=== PATIENT | male | born 1935 | race Caucasian/White ===

== ENCOUNTER 2023-11-29 17:27 | Inpatient (IN) | payer MEDICARE, BC, SELFPAY ==
[2023-11-28 22:50] VITALS: BP 98/62
[2023-11-28 22:52] VITALS: BP 98/62
[2023-11-28 23:00] VITALS: BP 100/53
[2023-11-28 23:20] LABS: % Basophils 0.3 % (0-2); % Immature Granulocytes 1.1 % (0-0.5); % Lymphocytes 1.5 % (20.5-51.1); % Monocytes 8.2 % (1.7-9.3); % Neutrophils 88.9 % (42.2-75.2); Absolute Basophils 0.1 10^3/uL (0-0.2); Absolute Immature Granulocytes 0.2 10^3/uL (0-0.05); Absolute Lymphocytes 0.3 10^3/uL (1.2-3.4); Absolute Monocytes 1.8 10^3/uL (0.1-0.6); Hemoglobin 13.3 g/dL (13.0-18.0); Mean Corpuscular Hgb 32.8 pg (27.0-31.0); Mean Corpuscular Volume 93.8 fL (80.0-94.0); Mean Platelet Volume 10.5 fL (7.4-10.4); Nucleated Red Blood Cells % 0 % (-); Platelet Count 127 10^3/uL (130-400); Red Blood Cell Count 4.05 10^6/uL (4.70-6.10); Red Cell Dist. Width 14.1 % (11.5-14.5); White Blood Cell Count 21.3 10^3/uL (4.8-10.8)
[2023-11-28 23:35] LABS: COVID-19 Antigen Negative (Negative)
[2023-11-28 23:36] LABS: ALT (SGPT) 20 U/L (0-50); AST (SGOT) 25 U/L (17-59); Albumin 3.2 g/dl (3.5-5.0); Alkaline Phosphatase 62 U/L (38-126); Blood Urea Nitrogen 23 mg/dl (9-20); Calcium 8.3 mg/dl (8.4-10.2); Carbon Dioxide 23 mmol/L (22-30); Chloride 102 mmol/L (98-107); Estimated Creatinine Clearance 47 ml/min; Glucose 138 mg/dl (70-99); Potassium 3.9 mmol/L (3.5-5.1); Sodium 136 mmol/L (135-145); Total Bilirubin 1.5 mg/dl (0.2-1.3); eGFR 52.84
--- NOTE | 2023-11-28 23:59 | ED.GENMED ---
History of Present Illness
General
Chief Complaint: Fall
Source: patient and family
Exam Limitations: none
Time Seen by Provider: 11/28/23 23:17
History of Present Illness
History of Present Illness:
88-year-old male apparently passed out at some point in the bathroom. He does not recall the event. Appears somewhat off mentally per the daughter. Patient denies other specific complaints. No head trauma no neck pain. Appears mildly short of
breath but this apparently is chronic.
Past History
Past History
ED Past Surgical History: Cholecystectomy, Orthopedic and Other (Cataract)
Phy Exam
Physical Exam
Physical Exam:
TRAUMA EXAM:
VITAL SIGNS: Vital signs reviewed, cooperative
DISTRESS: No active disease
EYES: Pupils reactive, no orbital trauma
NOSE: No deformity or epistaxis
FACE AND SCALP: No scalp or facial trauma, external canals no blood
NECK: Supple nontender
BACK: Back nontender, pelvis stable to compression
RESPIRATORY: Mild tachypnea. However no respiratory distress. Mild rhonchi right base.
CARDIAC: Regular rate and rhythm with occasional irregular beats
ABDOMEN: Soft nontender bowel sounds normal
SKIN: Skin intact no bleeding, color normal
EXTREMITIES: Nontender
NEUROLOGICAL: Alert, oriented, no motor deficits
PSYCH: Mood affect normal
Course
Orders/Labs/Results
Orders:
Orders
11/28/23 22:58
EKG [Electrocardiogram (*1)] Urgent
Reason for Study: Shortness of Breath
EKG- Treatment ONCE
11/28/23 23:11
CBC/With Diff [Complete Blood Count/With Diff] Urgent
CMP [Comprehensive Metabolic Panel] Urgent
COVID-19 Antigen Urgent
Source: Nasal Swab
Influenza A+B Rapid Molecular Urgent
WILFRED Source: Nasal Swab
Specimen Description:
11/28/23 23:52
Troponin I Urgent
11/28/23 23:59
Urinalysis Reflex To Culture Urgent
Date Specimen was Collected: 11/29/23
Time Specimen was Collected: 00:10
11/29/23
Electrocardiogram (*1) Stat
Reason for Study: Chest Pain
Comment: DONE
11/29/23 00:02
CXR2 [CR Chest - 2 Views ] Urgent
Comment:
Reason For Exam: Leukocytosis/tachypnea
11/29/23 00:11
Urine Microscopic Reflex Cult Urgent
11/29/23 00:15
CT Head W/o Iv Contrast Urgent
Reason For Exam: Syncope/change in mental status
11/29/23 00:33
Admit/Transfer Patient As Directed
Co-Sign Provider:
Level of Care: Observation services
Assign to:: Telemetry
Physician / Group: hospitalist
Diagnosis: syncope
Reason for Telemetry: Syncope
Date to Stop Telemetry: 12/01/23
Time to Stop Telemetry: 11:00
11/29/23 00:34
Code Status As Directed
Resuscitation Status: Full Code
PRN Pain Medication Management As Directed
May give lesser potent ordered pain med per pt: Yes
preference::
Protocol:: Medication orders for pain may be administered in a
manner that supports deferring to patient preference
when the pt is:
- Requesting an ordered lesser potent pain medication.
Least to most potent pain medications are defined
as: acetaminophen < NSAID < tramadol < opioids
(morphine, oxycodone, hydromorphone).
- Requesting a lesser dose of the same medication IF
ORDERED.
- Requesting a less intrusive route of administration
if both routes are prescribed by the provider (PO <
IV).
11/29/23 00:38
Aspirin 325 mg PO NOW STA
11/29/23 00:46
0.9% Sodium Chloride 1000 ml [Nss] 1,000 ml IV 100 mls/hr
Acetaminophen [Tylenol] 650 mg PO Q4HPRN PRN
Bisacodyl [Dulcolax] 10 mg RECTAL [id number] PRN
Docusate W/Senna [Senokot-S] 1 tablet PO BIDPRN PRN
Ondansetron Injectable [Zofran] 4 mg IV Q6HPRN PRN
Polyethylene Glycol Powder [Miralax] 17 grams PO DAILYPRN PRN
11/29/23 00:46
Echo 2D MMode Color/Doppler Routine
Reason for Study: syncope
Activity As Directed
Activity Level: With Assistance
Orthostatic Vital Signs As Directed
Orthostatic VS Frequency: Daily
Vital Signs As Directed
Frequency: Per unit guidelines
DX Deep Vein Thrombosis Video Routine
11/29/23 01:00
Flush (0.9% Sodium Chloride) [Flush (Nss)] See Dose Instructions IV PER PROTOCOL
11/29/23 02:18
Troponin I Q3H
11/29/23 05:02
Basic Metabolic Panel IN AM
Troponin I Q3H
11/29/23 05:36
EKG [Electrocardiogram (*1)] Urgent
Reason for Study: Syncope
11/29/23 05:37
EKG- Treatment ONCE
11/29/23 Breakfast
Regular
At Your Request: Full Participation
11/29/23 06:06
CARDIOLOGY CONSULT Routine
Consulting Provider: Guicho Bragg
Was physician already notified: No
Reason for consult: Troponin elevation, syncope, palpitations
Consult Notification Routine
Specialty to Notify: Cardiology
Date consulting provider notified: 11/29/23
Time consulting provider notified: 11:25
Notified:: Provider
Comment: tiger text
11/29/23 06:10
Pt Eval And Treat Routine
Activity Level: With Assistance
11/29/23 06:36
Complete Blood Count/No Diff Routine
11/29/23 07:24
NT-proBNP Urgent
Procalcitonin Urgent
11/29/23 08:00
Aspirin Chewable [Low Strength Aspirin] 81 mg PO DAILY
Gabapentin [Neurontin] 100 mg PO DAILY
Tamsulosin [Flomax] 0.4 mg PO DAILY
11/29/23 15:27
Change in Level of Care [Level of Care Change] As Directed
Level of Care: Inpatient admission
Reason for Hospitalization: Expect hospital level of care to cross 2 midnights.
Expected length of stay greater than two midnights?: Yes
ELOS- Estimated Length of Stay in days: 3
I certify the patient meets the requirements for IP care: Yes
CT Abd/pelvis Wo Iv Cont Routine
Comment:
Reason For Exam: UTI with lower abdo pain;eval for stones
Bladder Scan As Directed
Follow Bladder Retention/Intermittent Cath Algorithm?: Yes
PRN if no void in __ hours: 6
Frequency: Per Retention Algorithm
If Bladder Scan Result >: 400
then:: Straight cath
11/29/23 15:29
Straight Cath As Directed
Frequency: Per Retention Algorithm
Additional Instructions: straight cath as needed per acute urinary retention algorithm for 24 hrs
Additional Instructions: for bladder scan greater than 400 mL
11/29/23 16:00
CefTRIAXone [Rocephin] 1,000 mg IV Q24H
Sterile Water [Sterile Water For Injection] 10 ml IV Q24H
11/29/23 17:09
Pt Screening Request from Sivan Routine
11/29/23 18:00
Enoxaparin Sodium [Lovenox] 40 mg SC QPM
11/29/23 22:00
Atorvastatin [Lipitor] 20 mg PO HS
11/30/23 05:18
BMP [Basic Metabolic Panel] IN AM
CBC/No Diff [Complete Blood Count/No Diff] IN AM
12/01/23 11:00
DC Protocol for Telemetry ONCE
Abnormal Lab Results
11/28/23 11/28/23 11/29/23
23:11 23:52 00:11
WBC 21.3 H 10^3/uL
(4.8-10.8)
RBC 4.05 L 10^6/uL
(4.70-6.10)
Hct 38.0 L %
(39.0-52.0)
MCV
MCH 32.8 H pg
(27.0-31.0)
Plt Count 127 L 10^3/uL
(130-400)
MPV 10.5 H fL
(7.4-10.4)
Abs Immat Gran (auto) 0.2 H 10^3/uL
(0-0.05)
Absolute Neuts (auto) 19.0 H 10^3/uL
(1.4-6.5)
Absolute Lymphs (auto) 0.3 L 10^3/uL
(1.2-3.4)
Absolute Monos (auto) 1.8 H 10^3/uL
(0.1-0.6)
Immature Gran % 1.1 H %
(0-0.5)
Neutrophils % 88.9 H %
(42.2-75.2)
Lymphocytes % 1.5 L %
(20.5-51.1)
BUN 23 H mg/dl
(9-20)
Glucose 138 H mg/dl
(70-99)
Calcium 8.3 L mg/dl
(8.4-10.2)
Total Bilirubin 1.5 H mg/dl
(0.2-1.3)
Troponin I 0.048 H* ng/ml
Total Protein 6.0 L g/dl
(6.3-8.2)
Albumin 3.2 L g/dl
(3.5-5.0)
Procalcitonin
Ur Occult Blood Reflex 4+ A
(Negative)
Urine RBC >100 A /HPF
(0-2)
Urine Bacteria (Reflex) Few A
(Negative)
11/29/23 11/29/23 11/29/23
02:18 05:02 06:36
WBC 17.2 H 10^3/uL
(4.8-10.8)
RBC 4.00 L 10^6/uL
(4.70-6.10)
Hct 38.4 L %
(39.0-52.0)
MCV 96.0 H fL
(80.0-94.0)
MCH 32.8 H pg
(27.0-31.0)
Plt Count 115 L 10^3/uL
(130-400)
MPV
Abs Immat Gran (auto)
Absolute Neuts (auto)
Absolute Lymphs (auto)
Absolute Monos (auto)
Immature Gran %
Neutrophils %
Lymphocytes %
BUN 24 H mg/dl
(9-20)
Glucose 118 H mg/dl
(70-99)
Calcium 8.1 L mg/dl
(8.4-10.2)
Total Bilirubin
Troponin I 0.045 H* ng/ml 0.041 H* ng/ml
Total Protein
Albumin
Procalcitonin
Ur Occult Blood Reflex
Urine RBC
Urine Bacteria (Reflex)
11/29/23
07:24
WBC
RBC
Hct
MCV
MCH
Plt Count
MPV
Abs Immat Gran (auto)
Absolute Neuts (auto)
Absolute Lymphs (auto)
Absolute Monos (auto)
Immature Gran %
Neutrophils %
Lymphocytes %
BUN
Glucose
Calcium
Total Bilirubin
Troponin I
Total Protein
Albumin
Procalcitonin 6.57 H* ng/ml
(0.0-0.25)
Ur Occult Blood Reflex
Urine RBC
Urine Bacteria (Reflex)
11/29/23 06:36
11/29/23 05:02
Vital Signs
Initial and Last Documented VS:
Initial Vital Signs
Temp Pulse Resp BP Pulse Ox
99.2 F 88 20 98/62 94
11/28/23 22:50 11/28/23 22:50 11/28/23 22:50 11/28/23 22:50 11/28/23 22:50
Last Documented Vital Signs
Temp Pulse Resp BP Pulse Ox
98.3 F 90 16 129/87 96
11/30/23 03:40 11/30/23 03:40 11/30/23 03:40 11/30/23 03:40 11/30/23 03:40
MDM/Problems Addressed
Differential Diagnosis Includes:
Patient with a syncopal episode of unknown etiology. Since he does not recall the event unsure whether this was sudden or more vasovagal like. In addition he has mild tachypnea. Await chest x-ray. Leukocytosis. Await urine.
*Radiology
Radiology exam reviewed: preliminary read by ED provider (Negative chest x-ray) and radiology read reviewed (Negative CT)
*Pulse Oximetry
Patient hypoxic: no
*EKG
Interpreted by ED Provider?: Yes
Interpretation: abnormal
Comparison EKG: no comparison EKG present
Heart Rate: 90
Rhythm: sinus and PAC's
Redig: normal axis
Interval: normal interval
QRS Pattern: normal QRS
Ischemia: no ischemia
*Pulp Mill Supervisor Interpretation
Rate: normal
Interpretation: abnormal
Heart Rate: 98
Rhythm: sinus and PAC's
*Critical Care Note
Total Time (30-74mins, 75-104mins- exclusive of procedures): Not Applicable
ED Attending Note
-
Portions of this chart may have been created with voice recognition software.� Occasional wrong word or��sound alike� substitutions may have occurred due to the inherent limitations of voice recognition software.
Discharge Plan
Departure
Patient Disposition: Admit
Date of Disposition: 11/29/23
Time of Disposition: 00:33
Admit to: Telemetry
Presentation/result/management discussed w/ accepting MD/DO: Hospitalist
Discharge Problem:
Syncope, Leukocytosis
Interventions
Interventions:
*Risk Screen - Suicide Last Done: 11/28/23 22:50
*General Assessment Last Done: 11/28/23 22:50
*Neglect/Abuse Screening Last Done: 11/28/23 22:50
ED- Fall Risk Assessment Last Done: 11/29/23 08:29
*ED COVID-19 Vaccine History Last Done: 11/28/23 23:22
*Nursing Disposition Last Done: 11/29/23 15:57
ED-Musculoskeletal Assessment Last Done: 11/28/23 23:22
ED- Neurological Assessment Last Done: 11/29/23 08:29
ED-Skin Assessment Last Done: 11/29/23 05:39
Discharge Date and Time
Discharge Date/Time: 11/29/23 15:45
[2023-11-29] VITALS (23 sets, daily range): BP systolic 101–140; BP diastolic 51–124; PULSE 83–90; BMI 28.7
[2023-11-29 00:20] LABS: Urine Albumin Negative (Neg - Trace); Urine Bilirubin Negative (Negative); Urine Character Clear (Clear); Urine Color Yellow; Urine Glucose Negative (Negative); Urine Ketone Negative (Negative); Urine Leukocyte Negative (Negative); Urine Nitrite Negative (Negative); Urine Occult Blood 4+ (Negative); Urine Urobilinogen Negative (Neg - 1+)
[2023-11-29 00:27] LABS: Troponin I 0.048 ng/ml
[2023-11-29] MEDS: ASPIRIN 325 MG PO (00:45)
[2023-11-29] MEDS: NSS 1000 IV ×3 (01:01→22:39)
--- NOTE | 2023-11-29 04:05 | DOWNTIME ---
There was a [employer] Line [employer]eman Downtime on 11/01/2023 from 0100 to 11/01/2023 at 0300. Downtime documentation of patient's care, including medication administrations, has been reconciled in the electronic record per guidelines. Refer to the
patient's paper chart under the miscellaneous tab to see printed paper medication records and downtime forms.
[2023-11-29 04:19] LABS: Urine Bacteria Few (Negative); Urine Red Blood Cell >100 /HPF (0-2)
[2023-11-29 04:40] LABS: Troponin I 0.045 ng/ml
--- NOTE | 2023-11-29 04:52 | DOWNTIME ---
There was a [employer] Client Director Hardware Downtime on 11/29/2023 from 0100 to 11/29/2023 at 0355. Downtime documentation of patient's care, including medication administrations, has been reconciled in the electronic record per guidelines. Refer to the
patient's paper chart under the miscellaneous tab to see printed paper medication records and downtime forms.
[2023-11-29 05:43] LABS: Blood Urea Nitrogen 24 mg/dl (9-20); Calcium 8.1 mg/dl (8.4-10.2); Carbon Dioxide 25 mmol/L (22-30); Chloride 103 mmol/L (98-107); Estimated Creatinine Clearance 51 ml/min; Glucose 118 mg/dl (70-99); Potassium 4.3 mmol/L (3.5-5.1); Sodium 138 mmol/L (135-145); eGFR 58.17
[2023-11-29 05:55] LABS: Troponin I 0.041 ng/ml
--- NOTE | 2023-11-29 05:59 | HPS.HSE ---
Family Physician
-
Family Physician: Lisandro Burns
Chief Complaint
-
Syncope in the bathroom without any to urinate
History of Present Illness
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
Patient remembers going to the bathroom and trying to remove his diaper to urinate when he felt like he collapsed to the floor. He does not remember the exact details. He denies having lightheadedness at that moment. He denies chest pain or
palpitations at that moment. When he came to a press disallowed blocking and helpless came to investigate with and called 911. There was no postictal findings including incontinence of the bladder or bowel, tongue biting, excessive somnolence.
Patient denied having any chest pain. On arrival in the ED he had stable vital signs.
Family reports that the patient has had episodes of palpitations infrequently over the last 6 months. Patient himself reports palpitations once or twice a month. He denies feeling lightheaded or dizzy. He denies having chest pain. With he is
minimally ambulatory and does not know if he has exertional chest pain. He has chronic lymphedema of the lower extremities and says that he has not been diagnosed with any CHF. He denies orthopnea PND or any recent rapid weight gain. There has
been no medication changes. He does have BPH for which he takes tamsulosin. He is also on hydrochlorothiazide. He denies any history of any recent cardiac ischemia or stent.
Patient's appetite was reduced today. He feels slightly weaker than usual today. He denies having any fevers or chills. He denies a cough. He denies abdominal pain. He denies dysuria or hematuria. He denies having any diarrhea. He denies any
new rash. He denies melena or hematochezia.
In the ED the patient was afebrile blood pressure was in the low 100/50, ECG with sinus rhythm 4 degree AV block and frequent and irregular PACs. QT was 486. His initial troponin was 0.048. He had a white count of 21,000 hemoglobin of 13 platelet
count of 127. Chemistries were notable for a potassium of 3.9 and creatinine of 1.3 within normal sodium and glucose levels. UA is w/ hematuria. Chest x-ray with a small left pleural effusion
Medical History
Past Medical History
Past Medical History: Reports Other
Additional Past Medical History:
Hypertension
Chronic neuropathy
Hyperlipidemia
BPH
Past Surgical History: Reports Other
Additional Past Surgical History:
Left hip surgery
Social History
Tobacco: Non-smoker
Alcohol: None
Drug: None
Personal: Single
Living: Assisted Living
Employment: Retired
Family History
Family History: Not pertinent
Allergies / Home Medications
Allergies reflects when Allergies were last updated in [employer].
Home Medications with original date entered in [employer]
Allergy/Medication List:
Allergies
Allergy/AdvReac Type Severity Reaction Status Date / Time
No Known Allergies Allergy Unverified 11/28/23 22:50
Home Medications
B6 0.85 mg-folic 200 [id number] oral chewable tablet (Neuriva Plus) 1 tab PO DAILY 11/28/23
acetaminophen 500 mg tablet 500 mg PO Q6HPRN PRN mild pain 11/28/23
ascorbic acid (vitamin C) 500 mg tablet (Vitamin C) 500 mg PO DAILY 11/28/23
aspirin 81 mg chewable tablet 81 mg PO DAILY 11/28/23
atorvastatin 20 mg tablet 20 mg PO HS 11/28/23
calcium 500 mg (as carbonate)-vitamin D3 5 mcg (200 unit) tablet (Oyster Shell Calcium-Vitamin D3) 1 tab PO DAILY 11/28/23
gabapentin 100 mg capsule 100 mg PO DAILY 11/28/23
hydrochlorothiazide 25 mg tablet 25 mg PO DAILY 11/28/23
ibuprofen 200 mg tablet 200 mg PO Q6HPRN PRN mild pain 11/28/23
krill oil 500 mg capsule 1,000 mg PO DAILY 11/28/23
phenylephrine HCl 10 mg tablet 10 mg PO DAILY 11/28/23
tamsulosin 0.4 mg capsule 0.4 mg PO DAILY 11/28/23
therapeutic multivitamin 1 tab PO DAILY 11/28/23
Review of Systems
-
History Source: Patient and Family
Constitutional: Reports No Symptoms
EENT: Reports No Symptoms
Respiratory: Reports No Symptoms
Cardiac: Reports Palpitations and Syncope
Abdomen/GI: Reports No Symptoms
: Reports Incontinence
Musculoskeletal: Reports No Symptoms
Skin: Reports No Symptoms
Neurological: Reports No Symptoms
Endocrine: Reports No Symptoms
Hematologic/Lymphatic: Reports No Symptoms
Psych: Reports No Symptoms
Physical Exam
Vital Signs
Vital Signs
Temp Pulse Resp BP Pulse Ox
99.2 F 72 22 107/58 94
11/28/23 22:50 11/29/23 05:16 11/29/23 05:16 11/29/23 05:16 11/29/23 05:16
Physical Exam
General: Well Developed
HEENT: NormoCephalic, Anicteric, Moist mucous membranes, Atraumatic and PERRLA
Respiratory: Clear
Cardiac: S1/S2 and Irregular Rhythm
Breast: Deferred by me
GI: Soft, Non Tender, Non Distended and Normal Bowel Sounds
Rectal: Deferred by Provider
Genito-urinary: No costovertebral tender
Musculoskeletal: No Clubbing, No Cyanosis, Edema, Left Lower Extremity and Edema, Right Lower Extremity
Skin: Warm
Neuro: AO x 3
Hematologic/Lymphatic: No Lymphadenopathy
Psych: Calm
Laboratory Results
-
11/29/23 05:02
Laboratory Results
Total Bilirubin 1.5 mg/dl (0.2-1.3) H 10/15/24 23:11
AST 25 U/L (17-59) 11/28/23 23:11
ALT 20 U/L (0-50) 11/28/23 23:11
Alkaline Phosphatase 62 U/L (38-126) 11/28/23 23:11
Troponin I 0.041 ng/ml H* 11/29/23 05:02
Data Reviewed
-
Diagnostic Radiology: Image Personally Visualized and interpreted
Medical Tests (Nuc Med, Echo, EKG etc): Image Personally Visualized and interpreted
Lab Data: Labs Reviewed by me
Old Records: Reviewed
Impression/Plan
-
IMPRESSION:
Jack Parker. 88 M. 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 Labs
remarkable for troponin was 0.048 ECG is sinus with PACs. He has a white count of 21,000 with a plt count of 127. CT of the head was unremarkable. Chest x-ray w/ small left pleural effusion and UA w/ microscopic hematuria.
PLAN:
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 Labs
remarkable for troponin was 0.048 ECG is sinus with PACs. He has a white count of 21,000 with a count of 127. CT of the head was unremarkable. Chest x-ray and UA are pending.
Syncope�patient with brief syncopal episode with concern for arrhythmia versus vasovagal syncope. No chest pain but cannot rule out ischemia. There is also a possibility of mild hypovolemia given patient reduced p.o. intake and ongoing nebulizer
use. No focal neurological deficits.
- admit to telemetry
- cycle cardiac enzymes, asa 325 x 1 now.
- echo in am
- hold hctz, given 1 L NS in ED and re-eval
- orthostatic vs daily
- trend hgb
- PT eval
Leukocytosis�no signs of acute infection at this time.
- obtain recent cbc
- check u/a, xray, fever profile
- hold off abx
Mild Trop elevation - Unclear etiology. stress, ischemia, arrhytmia
- asa x 1, trend and heparin if increasing
- cardiology consult
DVT PPX - lovenox sq
Code Status - Full Code
[2023-11-29 06:45] LABS: Hematocrit 38.4 % (39.0-52.0); Hemoglobin 13.1 g/dL (13.0-18.0); Mean Corp Hgb Conc. 34.1 g/dL (33.0-37.0); Mean Corpuscular Hgb 32.8 pg (27.0-31.0); Mean Platelet Volume 10.4 fL (7.4-10.4); Platelet Count 115 10^3/uL (130-400); Red Cell Dist. Width 14.1 % (11.5-14.5); White Blood Cell Count 17.2 10^3/uL (4.8-10.8)
--- NOTE | 2023-11-29 07:48 | CON.CAR ---
Addendum entered and electronically signed by Guicho Bragg DO 11/29/23 11:06:
I saw and examined the patient.
The Senior Business Analyst's note was reviewed and I agree with the note.
Comment:
Plan:
-Presented after episode of syncope last night in the bathroom. No prior h/o syncope. Details prior to episode unclear as he does not recall. Head CT with no acute intracranial abnormality.
Hypotensive on arrival. Monitor orthostatic vitals.
Syncope likely vasovagal.
Check echo
Troponin peaked at 0.048, consider outpt ischemic eval.
Work up of leukocytosis and procal as per primary service.
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 Continue aspirin 81mg daily.
ProBNP elevated at 2110. Does not appear significantly volume overloaded. On HCTZ as OP, on hold currently due to hypotension.
Requested outpt cardiac records from [facility].
He will follow up with [facility] cardiology as outpt.
HPI: Catrachito is an 88 year old male with PMH of hypertension, hyperlipidemia, neuropathy, TIA/CVA, BPH, and PVD who presents to for evaluation after syncopal episode. He was standing in the bathroom last night when he suddenly fell to the floor. He
does not recall feeling dizzy or lightheaded prior to episode. He notes no history of syncope. He denied any other associated symptoms. He has chronic LE edema for which he wears compression stockings and takes HCTZ. He notes he has had a few falls
in the past, however notes these were mechanical in nature. On arrival to ER, patient noted to be hypotensive with temp 99.2 F. He also had leukocytosis with WBC of 21.3. Covid and flu testing negative. CXR without evidence of pneumonia. EKG showed
SR with PACs. He notes no history of arrhythmia, however family did report that he had occasional episodes of palpitations over the past few months. He was previously seen by Dr. Cullen at [facility], however does not follow regularly and he denies any
tree loader meat cardiac diagnoses. He was given gentle IVFs and cardiology consulted for evaluation. He reports no complaints currently and is resting comfortably in bed.
Original Note:
Consultation
Consultation Request
Date/Time Consultation Requested: 11/29/2023
Date/Time Consultation Performed: 11/29/2023 at 0730
Requesting Provider: Dr. Easley
Performing Provider: Joi Ahmadi PA-C for Dr. Bragg
Reason for Consultation: Syncope
Medical History
-
History of Present Illness:
HPI: Catrachito is an 88 year old male with PMH of hypertension, hyperlipidemia, neuropathy, TIA/CVA, BPH, and PVD who presents to for evaluation after syncopal episode. He was standing in the bathroom last night when he suddenly fell to the floor. He
does not recall feeling dizzy or lightheaded prior to episode. He notes no history of syncope. He denied any other associated symptoms. He has chronic LE edema for which he wears compression stockings and takes HCTZ. He notes he has had a few falls
in the past, however notes these were mechanical in nature. On arrival to ER, patient noted to be hypotensive with temp 99.2 F. He also had leukocytosis with WBC of 21.3. Covid and flu testing negative. CXR without evidence of pneumonia. EKG showed
SR with PACs. He notes no history of arrhythmia, however family did report that he had occasional episodes of palpitations over the past few months. He was previously seen by Dr. Cullen at [facility], however does not follow regularly and he denies any
[facility] cardiac diagnoses. He was given gentle IVFs and cardiology consulted for evaluation. He reports no complaints currently and is resting comfortably in bed.
PMH:
HTN
HLD
Neuropathy
h/o TIA/CVA in 2013
BPH
PVD
Past Medical History
Past Medical History: Other (In HPI)
Past Surgical History: Orthopedic (L hip)
Social History
Tobacco: Non-Smoker
Alcohol: None
Drug: None
Living: Assisted Living
Employment: Retired
Family History
Family History: Reviewed & Not Pertinent
Allergies / Home Medications
Allergy/AdvReac Type Severity Reaction Status Date / Time
No Known Allergies Allergy Unverified 11/28/23 22:50
�Medication �Instructions �Recorded �Confirmed �Type
B6 0.85 mg-folic 200 1 tab PO DAILY 11/28/23 11/28/23 History
[id number] oral
chewable tablet (Neuriva Plus)
acetaminophen 500 mg tablet 500 mg PO Q6HPRN PRN mild pain 11/28/23 11/28/23 History
ascorbic acid (vitamin C) 500 mg 500 mg PO DAILY 11/28/23 11/28/23 History
tablet (Vitamin C)
aspirin 81 mg chewable tablet 81 mg PO DAILY 11/28/23 11/28/23 History
atorvastatin 20 mg tablet 20 mg PO HS 11/28/23 11/28/23 History
calcium 500 mg (as 1 tab PO DAILY 11/28/23 11/28/23 History
carbonate)-vitamin D3 5 mcg (200
unit) tablet (Oyster Shell
Calcium-Vitamin D3)
gabapentin 100 mg capsule 100 mg PO DAILY 11/28/23 11/28/23 History
hydrochlorothiazide 25 mg tablet 25 mg PO DAILY 11/28/23 11/28/23 History
ibuprofen 200 mg tablet 200 mg PO Q6HPRN PRN mild pain 11/28/23 11/28/23 History
krill oil 500 mg capsule 1,000 mg PO DAILY 11/28/23 11/28/23 History
phenylephrine HCl 10 mg tablet 10 mg PO DAILY 11/28/23 11/28/23 History
tamsulosin 0.4 mg capsule 0.4 mg PO DAILY 11/28/23 11/28/23 History
therapeutic multivitamin 1 tab PO DAILY 11/28/23 11/28/23 History
Review of Systems
-
History Source: Patient
All other systems: Negative unless noted
Physical Exam
Vital Signs
Temp Pulse Resp BP Pulse Ox
99.2 F 70 19 108/66 97
11/28/23 22:50 11/29/23 07:30 11/29/23 07:30 11/29/23 07:00 11/29/23 07:30
Lab Results
11/29/23 06:36
11/29/23 05:02
Troponin I Cancelled 11/29/23 23:00
Foq-L-Lojshcklykc Pept Cancelled 11/29/23 06:36
Physical Exam
General: Well Developed, Well Nourished and No Apparent Distress
HEENT: Normocephalic, Anicteric and Moist Mucous Membranes
Respiratory: Clear and Non Labored Respirations
Cardiac: S1/S2 and Regular Rhythm
Musculoskeletal: No Clubbing, No Cyanosis and Edema
Skin: Warm and Dry
Neuro: AO x 3 and Nonfocal/Grossly Intact
Psych: Calm
Impression / Plan
-
PCP: Dr. Brian Dugan
Level Vial Curvature Gauger: Dr. Cullen
Impression:
Syncope
Leukocytosis
Elevated troponin
HTN
HLD
Neuropathy
h/o TIA/CVA in 2013
BPH
PVD
Echo 11/29/2023: Study pending
Plan:
-Presented after episode of syncope last night in the bathroom. No prior h/o syncope. Details prior to episode unclear as he does not recall. Head CT with no acute intracranial abnormality.
-Hypotension noted on arrival w/ BP as low as 98/62, improved this AM after IVFs. Check orthostatics.
-Leukocytosis noted, WBC 21.3. Flu/covid negative. CXR without active disease. Procalcitonin 6.57. Defer workup to primary service.
-Elevated troponin noted, peaking at 0.048, trending down thereafter. Suspect nonischemic myocardial injury. Continue aspirin 81mg daily.
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 EKG SR w/ PACs. No arrhythmia noted thus far.
-Check echo
-ProBNP elevated at 2110. On HCTZ as OP, on hold currently due to hypotension.
-Chronic LE edema noted. Continue compression stockings.
-Consider OP stress testing.
-Requested prior OP cardiac records from [facility].
HPI: Catrachito is an 88 year old male with PMH of hypertension, hyperlipidemia, neuropathy, TIA/CVA, BPH, and PVD who presents to for evaluation after syncopal episode. He was standing in the bathroom last night when he suddenly fell to the floor. He
does not recall feeling dizzy or lightheaded prior to episode. He notes no history of syncope. He denied any other associated symptoms. He has chronic LE edema for which he wears compression stockings and takes HCTZ. He notes he has had a few falls
in the past, however notes these were mechanical in nature. On arrival to ER, patient noted to be hypotensive with temp 99.2 F. He also had leukocytosis with WBC of 21.3. Covid and flu testing negative. CXR without evidence of pneumonia. EKG showed
SR with PACs. He notes no history of arrhythmia, however family did report that he had occasional episodes of palpitations over the past few months. He was previously seen by Dr. Cullen at [facility], however does not follow regularly and he denies any
[facility] cardiac diagnoses. He was given gentle IVFs and cardiology consulted for evaluation. He reports no complaints currently and is resting comfortably in bed.
Data Reviewed
-
EKG: Tracing Personally Visualized and interpreted
Radiology: Report Reviewed by me
CT Scan: Report Reviewed by me
Labs: Labs Reviewed by me
Old Records: Requested and Reviewed
[2023-11-29 07:54] LABS: NT-proBNP 2110 pg/ml
[2023-11-29 08:03] LABS: Procalcitonin 6.57 ng/ml (0.0-0.25)
[2023-11-29] MEDS: NEURONTIN 100 MG PO (10:44)
[2023-11-29] MEDS: FLOMAX 0.4 MG PO (10:44)
[2023-11-29] MEDS: LOW STRENGTH ASPIRIN 81 MG PO (10:45)
--- NOTE | 2023-11-29 14:59 | CM ---
Addendum entered by Cathy Zhang 11/29/23 15:14:
Patient signed [employer] and [employer] Obs letter. He also shared that owns multiple canes.
Original Note:
Chart reviewed. CM introduced self and role. Patient's daughter also present at bedside. Patient states he lives alone at [facility]. He is independent with his walker. He denied any +SDOHs. He is retired. He has an active PCP and pharmacy.
Verified he does not have any [facility] agencies coming to the home right now. His daughter is a huge support to him.
ANTICIPATED DISCHARGE PLAN: Return to [facility] when medically cleared.
--- NOTE | 2023-11-29 15:16 | W.PN.HOSP.TC ---
Today's Communication/Plan
-
Abdominal pleural ceftriaxone. Obtain the urine cultures. Obtain a CT of the abdomen pelvis without contrast.
Follow leukocytosis.
Follow echocardiogram and cardiology input.
Follow on telemetry.
Assessment / Plan
Assessment / Plan
IMPRESSION:
Jack Parker. 88 M. 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 Labs
remarkable for troponin was 0.048 ECG is sinus with PACs. He has a white count of 21,000 with a plt count of 127. CT of the head was unremarkable. Chest x-ray w/ small left pleural effusion and UA w/ microscopic hematuria.
PLAN:
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 Labs
remarkable for troponin was 0.048 ECG is sinus with PACs. He has a white count of 21,000 with a count of 127. CT of the head was unremarkable.
Syncope�patient with brief syncopal episode with concern for arrhythmia versus vasovagal syncope. No chest pain but cannot rule out ischemia. In differential is micturition syncope based on hx.
- follow on tele.
- echo pending
- hold hctz, given 1 L NS in ED and re-eval
- orthostatic vs daily
- trend hgb
- PT eval
- Cards eval
Indeterminate troponins without CP -suspect non ischemic trop elevation. Cards to see.
Leukocytosis
assoicate significant Procal elevation
Based on hx , signs, UA rule out UTI
- start on empirical ceftriaxone
- Check UCX
- Obtain CT A/P scan
BPH -cw flomax and following voiding pattern
DW Daughter at bedside in ER
DVT PPX - lovenox sq
Code Status - Full Code
Total time spent on today's encounter was 52 minutes which included time spent in counseling the patient/family regarding diagnosis and treatment plan as listed above, goals of care, and symptom management. Case was discussed with nursing staff,
specialists . All labs and imaging personally reviewed by me. Remainder the time spent in detailed review of previous records, lab data, imaging, and other medical provider documentation.
Anticipated Discharge: > 48 hours
Subjective/Interval History
-
Date of Service: November 29, 2023
Voicing no specific complaints but on further questioning he says freq of urine has been an issue and sometime difficult to urinate. He has now transitioned to adult continent underwears.
Currently had a prostate injury during catheterization in 2017 when he was at [facility] for gallbladder issue. Has not seen or follows with a urologist. He is on Flomax.
Denies any urinary tract infection. Denying any dysuria.
Objective Data
-
Labs:
Laboratory Results
11/29/23 11/29/23
05:02 06:36
WBC Cancelled 17.2 H
Hgb Cancelled 13.1
Hct Cancelled 38.4 L
Plt Count Cancelled 115 L
Sodium 138
Potassium 4.3
Chloride 103
Carbon Dioxide 25
BUN 24 H
Creatinine 1.2
Glucose 118 H
Calcium 8.1 L
Vital Signs:
Vital Signs
Temp Pulse Resp BP Pulse Ox
97.7 F 60 22 118/74 97
11/29/23 08:29 11/29/23 12:45 11/29/23 12:45 11/29/23 12:00 11/29/23 12:45
Review of Systems
-
EENT: Reports Sore Throat
Respiratory: Denies Cough or Trouble Breathing
Cardiac: Denies Chest Pain or Palpitations
Abdomen/GI: Denies Abdominal Pain, Nausea, Vomiting or Diarrhea
Genitourinary: Reports Frequency, Incontinence and Difficulty Voiding
Neuro: Denies Dizzy
Physical Exam
-
General: Comfortable
HEENT: Moist Mucous Membranes
Respiratory: Wheezes (occasional BL) and Non Labored Respirations; Negative Accessory Resp Muscle Use
Cardiac: Regular Rhythm and S1/S2
GI: Soft, Nondistended, Normal Bowel Sounds and Tender (over suprapubic area and make him void with pressure over the area)
Psych: Calm
Data Reviewed
-
Labs: Labs Reviewed by me
--- NOTE | 2023-11-29 15:55 | EDRN ---
Patient taken to room 413-1 on stretcher with NSS infusing at 100cc/HR.
[2023-11-29] MEDS: ROCEPHIN 1000 MG IV (16:39)
[2023-11-29] MEDS: STERILE WATER FOR INJECTION 10 ML IV (16:40)
--- NOTE | 2023-11-29 17:00 | PTCARENOTE ---
Received patient from ED via stretcher. AAOx3, assisted to bed with rolling walker. Assessed and oriented to room. Call buckner in close reach. Will continue to monitor.
[2023-11-29] MEDS: LOVENOX 40 MG SC (18:36)
[2023-11-29] MEDS: LIPITOR 20 MG PO (20:19)
[2023-11-30] VITALS (7 sets, daily range): BP systolic 110–148; BP diastolic 64–98; PULSE 82–101
[2023-11-30 06:06] LABS: Hematocrit 35.9 % (39.0-52.0); Hemoglobin 12.4 g/dL (13.0-18.0); Mean Corp Hgb Conc. 34.5 g/dL (33.0-37.0); Mean Corpuscular Hgb 32.7 pg (27.0-31.0); Mean Corpuscular Volume 94.7 fL (80.0-94.0); Mean Platelet Volume 10.4 fL (7.4-10.4); Platelet Count 113 10^3/uL (130-400); Red Blood Cell Count 3.79 10^6/uL (4.70-6.10); Red Cell Dist. Width 13.9 % (11.5-14.5); White Blood Cell Count 7.2 10^3/uL (4.8-10.8)
[2023-11-30 06:32] LABS: Blood Urea Nitrogen 26 mg/dl (9-20); Calcium 7.5 mg/dl (8.4-10.2); Carbon Dioxide 27 mmol/L (22-30); Chloride 106 mmol/L (98-107); Estimated Creatinine Clearance 61 ml/min; Glucose 89 mg/dl (70-99); Sodium 138 mmol/L (135-145); eGFR > 60.00
[2023-11-30] MEDS: NSS 1000 IV (08:34)
[2023-11-30] MEDS: NEURONTIN 100 MG PO (08:35)
[2023-11-30] MEDS: LOW STRENGTH ASPIRIN 81 MG PO (08:35)
[2023-11-30] MEDS: FLOMAX 0.4 MG PO (08:35)
[2023-11-30] MEDS: TYLENOL 650 MG PO (08:38)
--- NOTE | 2023-11-30 10:58 | CM ---
CM reviewed chart, patient from [facility]. CM placed two calls to [facility], spoke with Daz 3d who will have nurse call CM back. Patient seen bedside, confirms he is from [facility], has worked with [facility] in the past. CM spoke with
Zachary from [facility], current with patient at [facility], requesting referral placed for return of care. CM will send referral in [facility]. Patient will need script for PT/OT for [facility] upon discharge. CM awaiting return call from nurse at
[facility] to review PLOF and confirm patients return. CM will continue to follow for all discharge planning needs.
Plan; return to [facility] with [facility] and [facility], will need script for PT/OT.
--- NOTE | 2023-11-30 11:15 | W.PN.CARDCBS ---
Today's Communication / Plan
-
No recurrent syncope
Echo reviewed with pt and his daughter yesterday as well. EF is preserved and discussed the pathophysiology of .
Tele without heart block or arrhythmia.
Work up of leukocytosis as per primary service
HR and bp stable.
Consider outpt ischemic eval with his deli cutter slicer at [facility]
Outpt follow up with his deli cutter slicer.
Discussed with Primary service
Please recall if needed
Impression / Plan
-
.
PCP: Dr. Brian Dugan
Life Science Taxonomist: Dr. Cullen
Impression:
s/p syncope
Leukocytosis
Mild
Elevated troponin, nonMI troponin
HTN
HLD
Neuropathy
h/o TIA/CVA in 2013
BPH
PVD
Echo 11/29/2023: Study pending
Plan:
No recurrent syncope
Echo reviewed with pt and his daughter yesterday as well. EF is preserved and discussed the pathophysiology of .
Tele without heart block or arrhythmia.
Work up of leukocytosis as per primary service
HR and bp stable.
Consider outpt ischemic eval with his deli cutter slicer at [facility]
Outpt follow up with his deli cutter slicer.
Discussed with Primary service
Please recall if needed
.
HPI: Catrachito is an 88 year old male with PMH of hypertension, hyperlipidemia, neuropathy, TIA/CVA, BPH, and PVD who presents to for evaluation after syncopal episode. He was standing in the bathroom last night when he suddenly fell to the floor. He
does not recall feeling dizzy or lightheaded prior to episode. He notes no history of syncope. He denied any other associated symptoms. He has chronic LE edema for which he wears compression stockings and takes HCTZ. He notes he has had a few falls
in the past, however notes these were mechanical in nature. On arrival to ER, patient noted to be hypotensive with temp 99.2 F. He also had leukocytosis with WBC of 21.3. Covid and flu testing negative. CXR without evidence of pneumonia. EKG showed
SR with PACs. He notes no history of arrhythmia, however family did report that he had occasional episodes of palpitations over the past few months. He was previously seen by Dr. Cullen at [facility], however does not follow regularly and he denies any
intermediate school teacher cardiac diagnoses. He was given gentle IVFs and cardiology consulted for evaluation. He reports no complaints currently and is resting comfortably in bed.
Progress Note - Life Science Taxonomist
Subjective
Date of Service: November 30, 2023
Pt seen and examined. No complaints. No chest pain or shortness of breath.
Objective
Labs:
11/30/23 05:18
11/30/23 05:18
Labs
Hgb 12.4 g/dL (13.0-18.0) L 11/30/23 05:18
Hct 35.9 % (39.0-52.0) L 11/30/23 05:18
Plt Count 113 10^3/uL (130-400) L 11/30/23 05:18
Sodium 138 mmol/L (135-145) 11/30/23 05:18
Potassium 4.0 mmol/L (3.5-5.1) 11/30/23 05:18
BUN 26 mg/dl (9-20) H 11/30/23 05:18
Creatinine 1.0 mg/dL (0.7-1.3) 11/30/23 05:18
Glucose 89 mg/dl (70-99) 11/30/23 05:18
Troponins
11/28/23 11/29/23 11/29/23
23:52 02:18 05:02
Troponin I 0.048 H* 0.045 H* 0.041 H*
11/29/23 11/29/23 11/29/23
08:00 11:00 14:00
Troponin I Cancelled Cancelled Cancelled
11/29/23 11/29/23 11/29/23
17:00 20:00 23:00
Troponin I Cancelled Cancelled Cancelled
Vital Signs and I&O:
Vital Signs
Temp Pulse Resp BP Pulse Ox
98.6 F 85 22 148/92 98
11/30/23 07:56 11/30/23 07:56 11/30/23 07:56 11/30/23 07:56 11/30/23 08:00
Vital Signs
Temp Pulse Resp BP Pulse Ox
98.6 F 85 22 148/92 98
11/30/23 07:56 11/30/23 07:56 11/30/23 07:56 11/30/23 07:56 11/30/23 08:00
Intake & Output
11/28/23 11/29/23 11/30/23 12/01/23
06:59 06:59 06:59 06:59
Intake Total 840 / 840
Output Total 1275 / 1275
Balance -435 / -435
Physical Exam
Physical Exam
General: No acute distress, AAOX3
Neck: Negative JVD
Heart: Regular, Negative S3 positive S1/S2, Negative S4, No murmur
Lungs: CTA b/l, negative wheezes/rales/rhonchi
Abd: Positive BS, NT/ND, neg rebound/rigidity/guarding
Ext: Negative cyanosis/clubbing/edema
Neuro: nonfocal
--- NOTE | 2023-11-30 11:34 | W.PN.HOSP.TC ---
Today's Communication/Plan
-
Continue ceftriaxone. Follow urine culture.
Check TSH cortisol.
GARRETT stockings.
Hold hydrochlorothiazide.
PT OT eval.
Assessment / Plan
Assessment / Plan
IMPRESSION:
Jack Parker. 88 M. 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 Labs
remarkable for troponin was 0.048 ECG is sinus with PACs. He has a white count of 21,000 with a plt count of 127. CT of the head was unremarkable. Chest x-ray w/ small left pleural effusion and UA w/ microscopic hematuria.
PLAN:
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 Labs
remarkable for troponin was 0.048 ECG is sinus with PACs. He has a white count of 21,000 with a count of 127. CT of the head was unremarkable.
Syncope�patient with brief syncopal episode with concern for arrhythmia versus vasovagal syncope. No chest pain but cannot rule out ischemia. In differential is micturition syncope based on hx.
- follow on tele -no events.
- echo with normal EF and mild ,mild TR
- Appt card eval
Orthostatic hypotension -orthostatic rate shows no drop in blood pressure especially standing. No extrarenal losses noted. Check TSH cortisol. Hold hydrochlorothiazide. Garrett stockings for now.
Indeterminate troponins without CP -suspect non ischemic trop elevation. Cards following.
Leukocytosis
assoicate significant Procal elevation
Based on hx , signs, UA rule out UTI
- CT abdomen pelvis shows no evidence of uropathy, nephrolithiasis. Constipation mentioned but patient having regular bowel movements. No bowel wall thickening.
- Await urine culture. Patient with improved white count on ceftriaxone
- cw empirical ceftriaxone
BPH -cw flomax and following voiding pattern
LE edema -chronic ? dependent - takes HCTZ - hold due to orthostatic hypotension . Hold on diuretics . Garrett stockings
DW Cards today
DVT PPX - lovenox sq
Code Status - Full Code
Total time spent on today's encounter was 52 minutes which included time spent in counseling the patient/family regarding diagnosis and treatment plan as listed above, goals of care, and symptom management. Case was discussed with nursing staff,
specialists . All labs and imaging personally reviewed by me. Remainder the time spent in detailed review of previous records, lab data, imaging, and other medical provider documentation.
Anticipated Discharge: 24 - 48 hours
Subjective/Interval History
-
Date of Service: November 30, 2023
Urinated 4 times last night. He says he is able to completely evacuate bladder. Noted blood once in urine last night.
Denies dysuria.
Had a large BM this am.
Objective Data
-
Labs:
Laboratory Results
11/30/23
05:18
WBC 7.2
Hgb 12.4 L
Hct 35.9 L
Plt Count 113 L
Sodium 138
Potassium 4.0
Chloride 106
Carbon Dioxide 27
BUN 26 H
Creatinine 1.0
Glucose 89
Calcium 7.5 L
Vital Signs:
Vital Signs
Temp Pulse Resp BP Pulse Ox
98.6 F 85 22 148/92 98
11/30/23 07:56 11/30/23 07:56 11/30/23 07:56 11/30/23 07:56 11/30/23 08:00
I&O
11/29/23 11/30/23 12/01/23
06:59 06:59 06:59
Intake Total 840 / 840
Output Total 1275 / 1275
Balance -435 / -435
Review of Systems
-
Constitutional: Denies Fever
EENT: Denies Sore Throat
Respiratory: Denies Trouble Breathing
Cardiac: Denies Chest Pain
Abdomen/GI: Denies Abdominal Pain
Musculoskeletal: Reports Edema (Chronic bilateral lower extremity edema)
Neuro: Denies Dizzy
Physical Exam
-
General: No Apparent Distress
HEENT: Moist Mucous Membranes
Respiratory: Clear to Auscultation
Cardiac: Regular Rhythm and S1/S2
GI: Soft and Nontender
Musculoskeletal: Edema, Left Upper Extrem and Edema, Right Lower Extrem
Neuro: AO x 3
Psych: Calm; Negative Confused or Agitated
Data Reviewed
-
Labs: Labs Reviewed by me
[2023-11-30] MEDS: ROCEPHIN 1000 MG IV (15:53)
[2023-11-30] MEDS: STERILE WATER FOR INJECTION 10 ML IV (15:53)
[2023-11-30] MEDS: LOVENOX 40 MG SC (17:50)
[2023-11-30] MEDS: LIPITOR 20 MG PO (21:11)
[2023-12-01] VITALS (8 sets, daily range): BP systolic 136–173; BP diastolic 84–98; PULSE 76–97; O2SAT 97
[2023-12-01] MEDS: FLOMAX 0.4 MG PO (09:26)
[2023-12-01] MEDS: LOW STRENGTH ASPIRIN 81 MG PO (09:26)
[2023-12-01] MEDS: NEURONTIN 100 MG PO (09:26)
[2023-12-01] MEDS: FLUSH (NSS) 1 FLUSH IV (09:27)
[2023-12-01 09:39] LABS: Hematocrit 40.9 % (39.0-52.0); Hemoglobin 13.9 g/dL (13.0-18.0); Mean Corpuscular Hgb 32.5 pg (27.0-31.0); Mean Corpuscular Volume 95.6 fL (80.0-94.0); Mean Platelet Volume 10.3 fL (7.4-10.4); Platelet Count 137 10^3/uL (130-400); Red Blood Cell Count 4.28 10^6/uL (4.70-6.10); Red Cell Dist. Width 13.7 % (11.5-14.5); White Blood Cell Count 5.8 10^3/uL (4.8-10.8)
[2023-12-01 10:15] LABS: Procalcitonin 2.19 ng/ml (0.0-0.25)
[2023-12-01 13:10] LABS: Urine Albumin Negative (Neg - Trace); Urine Bilirubin Negative (Negative); Urine Character Clear (Clear); Urine Color Yellow; Urine Glucose Negative (Negative); Urine Ketone Negative (Negative); Urine Leukocyte Trace (Negative); Urine Nitrite Negative (Negative); Urine Occult Blood 2+ (Negative); Urine Urobilinogen Negative (Neg - 1+)
--- NOTE | 2023-12-01 13:24 | CM ---
Addendum entered by Makayla Pradhan 12/01/23 14:15:
Case Management Referral Form including PT Notes faxed to [facility] as requested
Plan: Discharge to [facility] when medically stable w/ Home Health Services
Report # [phone]

[facility]

Addendum entered by Makayla Pradhan 12/01/23 13:29:
[facility]
Report # [phone]

Original Note:
CM spoke with Nurse @ [facility] via phone; she reported that prior to admission, patient was independent with ADLs, ambulated with a RW, managed his own medications and went to the dining room for his meals
PT re-evaluated patient today; will fax their notes to [facility]
Plan: return to [facility] when medically stable
[2023-12-01 14:59] LABS: Urine Mucus Many; Urine Squamous Cell 0-2 /LPF (Few)
[2023-12-01 15:00] LABS: Urine Urothelial Cell 0-2 /LPF (FEW)
[2023-12-01 15:01] LABS: Urine Amorphous Seen
[2023-12-01 15:04] LABS: Urine Red Blood Cell 26-30 /HPF (0-2)
[2023-12-01 15:05] LABS: Urine Bacteria Few (Negative)
--- NOTE | 2023-12-01 15:24 | W.PN.HOSP.TC ---
Today's Communication/Plan
-
CW ABX
ID consult
CW PT
Assessment / Plan
Assessment / Plan
IMPRESSION:
Jack Parker. 88 M. 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 Labs
remarkable for troponin was 0.048 ECG is sinus with PACs. He has a white count of 21,000 with a plt count of 127. CT of the head was unremarkable. Chest x-ray w/ small left pleural effusion and UA w/ microscopic hematuria.
PLAN:
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 Labs
remarkable for troponin was 0.048 ECG is sinus with PACs. He has a white count of 21,000 with a count of 127. CT of the head was unremarkable.
Syncope�patient with brief syncopal episode with concern for arrhythmia versus vasovagal syncope. No chest pain but cannot rule out ischemia. In differential is micturition syncope based on hx.
- follow on tele -no events.
- echo with normal EF and mild ,mild TR
- Appt card eval
Orthostatic hypotension -orthostatic rate shows no drop in blood pressure especially standing. No extrarenal losses noted.None noted today.Check TSH cortisol. Hold hydrochlorothiazide. Garrett stockings for now.
Indeterminate troponins without CP -suspect non ischemic trop elevation. Cards following.
Leukocytosis
assoicated significant Procal elevation
Based on hx , signs, UA rule out UTI
- CT abdomen pelvis shows no evidence of uropathy, nephrolithiasis. Constipation mentioned but patient having regular bowel movements. No bowel wall thickening.
- urine culture shows no growth . Patient with improved white count and procal on ceftriaxone. Unknown source. Consult ID
- cw empirical ceftriaxone
BPH -cw flomax and following voiding pattern
LE edema -chronic ? dependent - takes HCTZ - hold due to orthostatic hypotension . Hold on diuretics . Garrett stockings
DVT PPX - lovenox sq
Code Status - Full Code
Anticipated Discharge: Within 24 hours
Subjective/Interval History
-
Date of Service: December 01, 2023
Patient feels better. Voices no specific complaints.
Urinating frequently but no retention on bladder scan. Denies any dysuria.
Denies any abdominal pain, nausea vomiting or diarrhea. He had a bowel movement yesterday.
Denies any shortness of breath.
Objective Data
-
Labs:
Laboratory Results
12/01/23
08:58
WBC 5.8
Hgb 13.9
Hct 40.9
Plt Count 137 D
Vital Signs:
Vital Signs
Temp Pulse Resp BP Pulse Ox
97.9 F 72 20 173/93 96
12/01/23 11:49 12/01/23 11:49 12/01/23 11:49 12/01/23 11:49 12/01/23 11:49
I&O
11/30/23 12/01/23 12/02/23
06:59 06:59 06:59
Intake Total 840 / 840 1939
Output Total 1275 / 1275 2575 / 2575
Balance -435 / -435 -635 / -635
Review of Systems
-
Constitutional: Denies Fever
EENT: Denies Sore Throat
Respiratory: Denies Cough
Neuro: Denies Dizzy
Physical Exam
-
General: No Apparent Distress
HEENT: Moist Mucous Membranes
Respiratory: Clear to Auscultation
Cardiac: Regular Rhythm and S1/S2
GI: Soft, Nontender, Nondistended and Normal Bowel Sounds
Musculoskeletal: Edema, Right Lower Extrem and Edema, Left Lower Extrem
Neuro: AO x 3
Psych: Calm
Data Reviewed
-
Labs: Labs Reviewed by me
--- NOTE | 2023-12-01 15:28 | CON.ID ---
Consultation
-
Date/Time Consultation Requested: 12/01/2023 1200
Date/Time Consultation Performed: 12/01/2023 1500
Requesting Provider: Dr. Garcia
Performing Provider: Dr. Barahona
Reason for Consultation: Syncope, leukocytosis
Chief Complaint / Past History
History of Present Illness
Jack Parker is an 88-year-old man being evaluated at the request of Dr. Garcia in regards to leukocytosis and recent syncopal event. History is obtained from chart review, patient interview, and history obtained from the patient's daughter who
was at the bedside.
The patient resides at a local assisted living facility and reports that on 11/30 he ate dinner (soup, salad, tea) and then went back to his room and went into the bathroom where he subsequently passed out. He reports that he believes he was out
for several hours, and when he awoke he pressed the emergency button lanyard that was around his neck. He was emergently transported to [facility], where he was found to have a leukocytosis. He was started on empiric antibiotics. His hospital
course has been significant for improvement in white count. Cultures have remained negative, and Infectious Diseases is asked to comment upon further antimicrobial therapy.
The patient denies any prior fevers or chills before the episode. He denies any history of cough or congestion. He denies any history of abdominal pain. He does note baseline urinary incontinence, but does not recall any dysuria or hematuria.
Past History
Additional Past Medical History:
TIA/CVA (2013)
BPH
Additional Past Surgical History:
Right total hip arthroplasty
Cholecystectomy
Allergy History:
No Known Allergies Allergy (Unverified 11/28/23 22:50)
Medications Reviewed: Yes
Current Antibiotics:
Rocephin (day #3)
Social History
Tobacco: Non-Smoker
Alcohol: None
Drug: None
Living: Assisted Living
Employment: Retired
Family History
Family History: Not Pertinent
Review of Systems
Vital Signs
Temp Pulse Resp BP Pulse Ox
97.9 F 72 20 173/93 96
12/01/23 11:49 12/01/23 11:49 12/01/23 11:49 12/01/23 11:49 12/01/23 11:49
Physical Exam
Physical Exam
Constitutional: No Acute Distress, Comfortable, Chronically Ill and Non-toxic
Eyes: Pupils Equal, Pupils Round, No Conjunctival Hemorrhage and Sclera Anicteric
Oral: No Thrush and No Ulcers
Cardiovascular: Regular Rate and S1/S2; Negative S3/S4
Pulmonary: Clear; Negative Wheezes, Rales or Rhonchi
Gastrointestinal: Soft, Non Tender and Non Distended
Extremities: Edema (3+ B/L LE's); Negative Cyanosis or Erythema
Skin: Negative Rash or Jaundice
Neurological: Awake and Alert
Psychological: Calm
Lab / Diagnostic Study Results
12/01/23 08:58
11/30/23 05:18
Abs Immat Gran (auto) 0.2 10^3/uL (0-0.05) H 11/28/23 23:11
Absolute Neuts (auto) 19.0 10^3/uL (1.4-6.5) H 11/28/23 23:11
Absolute Lymphs (auto) 0.3 10^3/uL (1.2-3.4) L 11/28/23 23:11
Absolute Monos (auto) 1.8 10^3/uL (0.1-0.6) H 11/28/23 23:11
Absolute Basos (auto) 0.1 10^3/uL (0-0.2) 11/28/23 23:11
Immature Gran % 1.1 % (0-0.5) H 11/28/23 23:11
Neutrophils % 88.9 % (42.2-75.2) H 11/28/23 23:11
Lymphocytes % 1.5 % (20.5-51.1) L 11/28/23 23:11
Monocytes % 8.2 % (1.7-9.3) 11/28/23 23:11
Eosinophils % 0.0 % (0-6) 11/28/23 23:11
Basophils % 0.3 % (0-2) 11/28/23 23:11
Procalcitonin 2.19 ng/ml (0.0-0.25) H* 12/01/23 08:58
Urine WBC 11-15 /HPF (0-5) A 12/01/23 12:52
Ur Squamous Epith Cells 0-2 /LPF (Few) 12/01/23 12:52
Microbiology Results
Micro:
11/29/23 00:11 Urine Culture - Final
Urine NO GROWTH
11/28/23 23:11 Influenza Types A & B (DIMITRI) - Final
Nasal Swab Negative for Influenza A & B, NAAT
Negative results must be combined with clinical observations
and patient history.
Nucleic Acid Amplification test (NAAT)performed on the
[employer] platform.
Imaging:
11/29/2023 CT abdomen/pelvis without contrast: Findings are concerning for developing moderate fecal impaction. There is moderate fecal material in the region of the rectum. Small hypodense hepatic lesion is noted and likely a cyst or hemangioma.
Mild diverticulosis is noted. Please see full dictation for additional detail. Film personally viewed.
11/29/2023 CT head: No acute intracranial abnormality noted.
11/29/2023 Chest x-ray: No acute osseous abnormalities. No focal airspace disease noted. Please see full dictation for additional detail. Film personally viewed.
Assessment / Plan
Syncopal event
Leukocytosis; improved
Elevated procalcitonin
TIA/CVA (2013)
BPH
Recommendations:
At present, urine cultures are negative. No blood cultures were obtained, though. Patient remains afebrile.
Clinically, appears improved from admission.
Given the uncertainty as to whether there was an infectious process or not, would continue with an additional 5 days of antibiotics. This was discussed extensively with the patient and daughter, and the decision was reached via shared decision
making.
Care Review
Plan reviewed with: Physician (Hospitalist)
[2023-12-01] MEDS: LOVENOX 40 MG SC (17:41)
[2023-12-01] MEDS: OMNICEF 300 MG PO (21:34)
[2023-12-01] MEDS: LIPITOR 20 MG PO (21:34)
[2023-12-02 07:50] VITALS: BP 142/82
[2023-12-02] MEDS: NEURONTIN 100 MG PO (08:34)
[2023-12-02] MEDS: LOW STRENGTH ASPIRIN 81 MG PO (08:34)
[2023-12-02] MEDS: OMNICEF 300 MG PO ×2 (08:34→20:44)
[2023-12-02] MEDS: FLOMAX 0.4 MG PO (08:34)
[2023-12-02] MEDS: FLUSH (NSS) 1 FLUSH IV (08:35)
[2023-12-02] MEDS: TYLENOL 650 MG PO (08:38)
--- NOTE | 2023-12-02 09:51 | W.PN.HOSP.TC ---
Today's Communication/Plan
-
Follow CT Urogram
CW ABX
Assessment / Plan
Assessment / Plan
IMPRESSION:
Jack Parker. 88 M. 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 Labs
remarkable for troponin was 0.048 ECG is sinus with PACs. He has a white count of 21,000 with a plt count of 127. CT of the head was unremarkable. Chest x-ray w/ small left pleural effusion and UA w/ microscopic hematuria.
PLAN:
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 Labs
remarkable for troponin was 0.048 ECG is sinus with PACs. He has a white count of 21,000 with a count of 127. CT of the head was unremarkable.
Syncope�patient with brief syncopal episode with concern for arrhythmia versus vasovagal syncope. No chest pain but cannot rule out ischemia. In differential is micturition syncope based on hx.
- follow on tele -no events. PACs but no afib
- echo with normal EF and mild ,mild TR
- Appt card eval
Orthostatic hypotension -orthostatic rate shows no drop in blood pressure especially standing. No extrarenal losses noted.None noted today.Check TSH cortisol. Hold hydrochlorothiazide. Garrett stockings for now.
Indeterminate troponins without CP -suspect non ischemic trop elevation. Cards following.
Leukocytosis
assoicated significant Procal elevation
Based on hx , signs, UA rule out UTI
- CT abdomen pelvis shows no evidence of uropathy, nephrolithiasis. Constipation mentioned but patient having regular bowel movements. No bowel wall thickening.
- urine culture shows no growth . Patient with improved white count and procal on ceftriaxone. Unknown source. appt ID input
- cw empirical ceftriaxone -switch to Cefdinir per ID on dc
Abnormal UA-microscopic hematuria, pyuria, urothelial cells and recent changes with his urine habits noted. Consulted urology-recommended CT urogram which is done this morning and report pending. Urine for cytology requested.
BPH -cw flomax and following voiding pattern
LE edema -chronic ? dependent - takes HCTZ - hold due to orthostatic hypotension . Hold on diuretics due to frequency . Garrett stockings
DVT PPX - lovenox sq
Code Status - Full Code
Anticipated Discharge: 24 - 48 hours
Subjective/Interval History
-
Date of Service: December 02, 2023
He had a brief sensation of dysuria yesterday morning but that resolved. Now just with his usual frequency. Denies any pelvic pain.
No fever or chills.
Feels better.
Voicing no specific complaints.
Objective Data
-
Vital Signs:
Vital Signs
Temp Pulse Resp BP Pulse Ox
97.9 F 82 18 142/82 96
12/02/23 07:50 12/02/23 07:50 12/02/23 07:50 12/02/23 07:50 12/02/23 07:50
I&O
12/01/23 12/02/23 12/03/23
06:59 06:59 06:59
Intake Total 1939 840 / 840
Output Total 2575 / 2575 1300 / 1300
Balance -635 / -635 -460 / -460
Review of Systems
-
Respiratory: Denies Trouble Breathing
Cardiac: Denies Chest Pain
Abdomen/GI: Denies Abdominal Pain, Nausea or Vomiting
Neuro: Denies Dizzy
Physical Exam
-
General: Comfortable
HEENT: Moist Mucous Membranes
Respiratory: Clear to Auscultation
Cardiac: Regular Rhythm and S1/S2
GI: Soft and Nontender
Musculoskeletal: Edema, Right Lower Extrem (as before bilaterally) and Edema, Left Lower Extrem
Neuro: AO x 3
Psych: Calm
Data Reviewed
-
Labs: Labs Reviewed by me
[2023-12-02 10:58] LABS: Cortisol, Random 9.6 ug/dl; TSH 3.09 uIU/ml (0.47-4.68)
[2023-12-02 11:08] VITALS: BP 146/87
--- NOTE | 2023-12-02 12:54 | CM ---
ERNESTO met with Jack at bedside; he was watching [employer] football, but was hoping Yosvany Myers was going to be playing today. I checked the schedule for him and found that Yosvany Myers is on a week. Jack was fine with watching other [employer] games
today and is looking forward to returning home to [facility] on Monday when the administrative staff will be available for him to return.
CM will follow for discharge planning needs. Curently plan is for discharge to home with no anticipated needs.
[2023-12-02 15:50] VITALS: BP 144/92
[2023-12-02] MEDS: LOVENOX 40 MG SC (18:08)
[2023-12-02 19:37] VITALS: BP 157/87
[2023-12-02] MEDS: LIPITOR 20 MG PO (20:44)
[2023-12-02 23:31] VITALS: BP 164/96
[2023-12-03 03:15] VITALS: BP 139/76
[2023-12-03 07:13] VITALS: BMI 28.3
[2023-12-03 07:45] VITALS: BP 151/90; BP 164/96; BP 171/98; PULSE 72; PULSE 79; PULSE 94
[2023-12-03] MEDS: LOW STRENGTH ASPIRIN 81 MG PO (08:37)
[2023-12-03] MEDS: FLOMAX 0.4 MG PO (08:37)
[2023-12-03] MEDS: NEURONTIN 100 MG PO (08:37)
[2023-12-03] MEDS: OMNICEF 300 MG PO ×2 (08:37→19:39)
[2023-12-03] MEDS: TYLENOL 650 MG PO ×2 (08:41→19:39)
--- NOTE | 2023-12-03 09:39 | W.PN.HOSP.TC ---
Today's Communication/Plan
-
Switch to oral abx
Add lasix
DC planning
Assessment / Plan
Assessment / Plan
IMPRESSION:
Jack Parker. 88 M. 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 Labs
remarkable for troponin was 0.048 ECG is sinus with PACs. He has a white count of 21,000 with a plt count of 127. CT of the head was unremarkable. Chest x-ray w/ small left pleural effusion and UA w/ microscopic hematuria.
PLAN:
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 Labs
remarkable for troponin was 0.048 ECG is sinus with PACs. He has a white count of 21,000 with a count of 127. CT of the head was unremarkable.
Syncope�patient with brief syncopal episode with concern for arrhythmia versus vasovagal syncope. No chest pain but cannot rule out ischemia. In differential is micturition syncope based on hx.
- follow on tele -no events. PACs but no afib
- echo with normal EF and mild ,mild TR
- Appt card eval
Indeterminate troponins without CP -suspect non ischemic trop elevation. Cards following.
Orthostatic hypotension -orthostatic rate shows no drop in blood pressure especially standing -could have been the cause of syncope. No extrarenal losses noted.None noted today. TSH /cortisol are OK. Hold hydrochlorothiazide. CW tubigrips.
Leukocytosis
assoicated significant Procal elevation
Based on hx , signs, UA rule out UTI
- CT abdomen pelvis shows no evidence of uropathy, nephrolithiasis. Constipation mentioned but patient having regular bowel movements. No bowel wall thickening.
- urine culture shows no growth . Patient with improved white count and procal on ceftriaxone. Unknown source. appt ID input
- cw empirical ceftriaxone -switch to Cefdinir for 5 days per ID on dc
Abnormal UA-microscopic hematuria, pyuria, urothelial cells and recent changes with his urine habits noted. Consulted urology-recommended CT urogram - shows Severely enlarged prostate with evidence of BPH. There is chronic outlet bladder
obstruction signs and also possible superimposed acute cystitis. I suspect the cystitis is acute and active and probably infectious. Finish the course of antibiotics. Urology recommends no inpatient eval but would need outpatient cystoscopy.
Advised the patient daughter to make an appointment with Dr. Ross. Urine for cytology requested.
BPH -cw flomax and following voiding pattern
LE edema -chronic ? dependent - takes HCTZ - hold due to orthostatic hypotension .With now resolution of ortho hypotension and since LE edema is significant we discussed role of diuretics probably lasix in the day and he is agreeable. He continues
to keep his legs elevated. CW tubigrips . Garrett stockings
DVT PPX - lovenox sq
Code Status - Full Code
DC in am to [facility]
Anticipated Discharge: Within 24 hours
Subjective/Interval History
-
Date of Service: December 03, 2023
Voicing no specific complaints.
Objective Data
-
Vital Signs:
Vital Signs
Temp Pulse Resp BP Pulse Ox
98.1 F 72 18 151/90 95
12/03/23 07:45 12/03/23 07:45 12/03/23 07:45 12/03/23 07:45 12/03/23 07:45
I&O
12/02/23 12/03/23 12/04/23
06:59 06:59 06:59
Intake Total 840 / 840 240 / 240
Output Total 1300 / 1300 500 / 500
Balance -460 / -460 -260 / -260
Review of Systems
-
Constitutional: Denies Fever
Respiratory: Denies Trouble Breathing
Cardiac: Denies Chest Pain
Abdomen/GI: Denies Abdominal Pain, Nausea, Vomiting or Diarrhea
Genitourinary: Reports Frequency; Denies Dysuria
Neuro: Denies Dizzy
Physical Exam
-
General: No Apparent Distress
Respiratory: Non Labored Respirations; Negative Accessory Resp Muscle Use
Cardiac: Regular Rhythm and S1/S2
GI: Soft, Nontender, Nondistended and Normal Bowel Sounds
Musculoskeletal: Edema, Right Lower Extrem and Edema, Left Lower Extrem (As before)
Neuro: AO x 3
Psych: Calm
[2023-12-03] MEDS: LASIX 20 MG PO (10:28)
[2023-12-03 11:20] VITALS: BP 132/75
[2023-12-03 15:30] VITALS: BP 148/82
[2023-12-03] MEDS: LOVENOX 40 MG SC (17:05)
[2023-12-03 19:00] VITALS: BP 157/91
[2023-12-03] MEDS: LIPITOR 20 MG PO (19:38)
[2023-12-03 23:00] VITALS: BP 149/78
[2023-12-04 03:00] VITALS: BP 140/84
[2023-12-04 06:32] VITALS: BMI 28.0
[2023-12-04 07:35] VITALS: BP 150/89
[2023-12-04] MEDS: NEURONTIN 100 MG PO (08:15)
[2023-12-04] MEDS: FLOMAX 0.4 MG PO (08:15)
[2023-12-04] MEDS: OMNICEF 300 MG PO (08:15)
[2023-12-04] MEDS: LASIX 20 MG PO (08:15)
[2023-12-04] MEDS: LOW STRENGTH ASPIRIN 81 MG PO (08:15)
[2023-12-04] MEDS: TYLENOL 650 MG PO (08:17)
[2023-12-04 09:31] VITALS: BP 142/77; BP 145/84; BP 165/85; PULSE 67; PULSE 72; PULSE 85
[2023-12-04 11:31] VITALS: BP 163/95
--- NOTE | 2023-12-04 11:34 | CM ---
Addendum entered by Devaughn Hudson 12/04/23 12:45:
Hard script for VN/PT will be sent w/ transfer packet at d/c.
Yehuda Plunkett
Report # [id number]

Original Note:
Pt from [facility].
Per hospitalist, pt can return to facility today
Needed VN/PT order requested
Seen pt at bedside. Confirmed pharmacy- [facility]
Krystle confirms pt self-administers medications
IMM reviewed, pt given copy. Copy placed into chart
Pt stated daughter will transport at d/c
Pt confirmed he wants [facility] for PT
[facility] referral completed in [facility]
CM spoke w/ Krystle/Yehuda Plunkett re pt returning today. Facility agreeable
Facility fax number provided. Krystle stated there is no report number and to fax updates and d/c instructions
Yehuda Plunkett

Plan: Return to [facility] w/ [facility]
[2023-12-04 11:42] LABS: Glucose - Point of Care 80 mg/dl (70-99)
--- NOTE | 2023-12-04 11:50 | W.PN.HOSP.TC ---
Today's Communication/Plan
-
Dc home
Assessment / Plan
Assessment / Plan
Imaging
CXR
IMPRESSION:
No focal airspace disease.
Slight blunting of the left costophrenic angle, possible trace pleural effusion. No pneumothorax.
CT Head
IMPRESSION:
No acute intracranial abnormality noted.
Mild atrophy with sequelae of mild small vessel ischemic disease.
CT Abd/Pelvis
IMPRESSION: Findings concerning for developing moderate fecal impaction.
Small hypodense hepatic lesion likely a cyst or hemangioma.
Simple right renal cysts. Too small to characterize hypodense right renal lesion likely a benign cyst.
Prior cholecystectomy.
Moderate fecal material throughout the colon.
Mild diverticulosis.
CT Urography
IMPRESSION:
1. Severely enlarged prostate gland with evidence for benign prostatic hyperplasia (BPH).
2. Mild diffuse urinary bladder wall thickening and trabeculation suggesting chronic outlet obstruction. Mild perivesical inflammation could be secondary to superimposed acute cystitis.
3. Moderate chronic bilateral renal disease.
4. Small to moderate number of bilateral renal cysts.
5. Mild acute stercoral colitis in the rectum with suggestion of fecal impaction.
6. Moderate focal peripheral biliary dilatation in the medial segment of the left lobe of the liver and mild atrophy of the left lobe of the liver.
7. Previous cholecystectomy.
8. 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
9. 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
2d Echo
CONCLUSIONS
Normal left ventricular size and function. Normal regional wall motion. Mild
concentric left ventricular hypertrophy. LV ejection fraction is 55-60%.
Mild aortic stenosis. Peak/mean gradients across the aortic valve are 12/6 mmHg
with aortic valve area 1.6 cm2. No aortic regurgitation is seen.
Mild tricuspid regurgitation. Estimated pulmonary artery pressure of 25-30
mmHg.
Mildly dilated ascending aorta, measuring 4.0 cm.
No prior study available for comparison.
Physical Exam
NAD, sitting in bedside chair
Scleral anicteric
Moist mucous membranes
No JVD
CTA bilateral
Normal S1-S2, soft RUSB KRYSTA
Soft nontender nondistended bowel sounds active
Has thigh high tubi change coordinator on
Moves extremities spontaneously
AAOx3
Assessment and Plan
Syncope
-Potentially micturition related syncope versus orthostatic hypotension however cannot exclude arrhythmia genic as it was elevated troponins.
-Telemetry without findings of arrhythmia
-Orthostatics negative
-Hydrochlorothiazide stopped due to concern for potential orthostatic cause however started on diuretics as he continued to have lower extremity swelling and he was agreeable to this per documentation and verbalized agreeing to this when I confirmed
this with him
-2D echocardiogram completed, as above
TypeII Demand ischemia
-Downtrended
-2d echo without WMA
-Cards recs outpatient ischemic eval
BPH
-Microscopic hematuria, could be relatde to trauma
-Outpatient uro follow up, may need cysto, daughter updated about this
-flomax started
LE Edema
-Lasix po
-Tubigrips
DC [place]
Script for home PT and VN provided
Daughter updated
More than 30 minutes spent in discharge including
Final examination of the patient
Summarizing hospital stay
Instructions for continuing care to all relevant caregivers
Preparation of discharge records, prescriptions, and referral forms
Total time spent (in minutes): 33mins
Anticipated Discharge: Today
Subjective/Interval History
-
Date of Service: December 04, 2023
Seen and examined. No new complaints. No acute overnight events.
States that he was told yesterday that he would be going home today.
Objective Data
-
Vital Signs:
Vital Signs
Temp Pulse Resp BP Pulse Ox
97.6 F 71 20 163/95 96
12/04/23 11:31 12/04/23 11:31 12/04/23 11:31 12/04/23 11:31 12/04/23 11:31
I&O
12/03/23 12/04/23 12/05/23
06:59 06:59 06:59
Intake Total 240 / 240 480 / 480
Output Total 500 / 500 900 / 900
Balance -260 / -260 -420 / -420
--- NOTE | 2023-12-04 11:50 | W.DCSUMMARY ---
Discharge Summary
Discharge Data
Date of Admission: 11/29/23
Date of Discharge: 12/04/23
-
Pending Results: No
Hospital Course
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 This was likely believed to be micturition syncope versus vasovagal syncope or orthostatic
syncope. Was evaluated by cardiology as there was concern for cardiac enzyme leak that downtrended. Was monitored on telemetry without acute events. 2D echo completed demonstrating squeezing function of 55 to 60% with mild aortic valve stenosis
and mildly dilated ascending aorta measuring 4 cm. Cardiology recommended outpatient follow-up for potential ischemic evaluation. With saying that hydrochlorothiazide was held as this could worsen orthostatic hypotension, but there was still
concern for lower extremity edema therefore after a discussion it was determined to start lasix low dose daily as agreeable to this and continue to elevate leg along with wearing tubigrips/compression stockings/teds.
Additionally, found to have high white blood cell count unclear as to etiology therefore was evaluated by infectious diseases and recommended oral antibiotics with cefdinir for 5 days on discharge.
CXR
IMPRESSION:
No focal airspace disease.
Slight blunting of the left costophrenic angle, possible trace pleural effusion. No pneumothorax.
CT Head
IMPRESSION:
No acute intracranial abnormality noted.
Mild atrophy with sequelae of mild small vessel ischemic disease.
CT Abd/Pelvis
IMPRESSION: Findings concerning for developing moderate fecal impaction.
Small hypodense hepatic lesion likely a cyst or hemangioma.
Simple right renal cysts. Too small to characterize hypodense right renal lesion likely a benign cyst.
Prior cholecystectomy.
Moderate fecal material throughout the colon.
Mild diverticulosis.
CT Urography
IMPRESSION:
1. Severely enlarged prostate gland with evidence for benign prostatic hyperplasia (BPH).
2. Mild diffuse urinary bladder wall thickening and trabeculation suggesting chronic outlet obstruction. Mild perivesical inflammation could be secondary to superimposed acute cystitis.
3. Moderate chronic bilateral renal disease.
4. Small to moderate number of bilateral renal cysts.
5. Mild acute stercoral colitis in the rectum with suggestion of fecal impaction.
6. Moderate focal peripheral biliary dilatation in the medial segment of the left lobe of the liver and mild atrophy of the left lobe of the liver.
7. Previous cholecystectomy.
8. 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
9. 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
2d Echo
CONCLUSIONS
Normal left ventricular size and function. Normal regional wall motion. Mild
concentric left ventricular hypertrophy. LV ejection fraction is 55-60%.
Mild aortic stenosis. Peak/mean gradients across the aortic valve are 12/6 mmHg
with aortic valve area 1.6 cm2. No aortic regurgitation is seen.
Mild tricuspid regurgitation. Estimated pulmonary artery pressure of 25-30
mmHg.
Mildly dilated ascending aorta, measuring 4.0 cm.
No prior study available for comparison.
Discharge Plan
-
Patient Disposition: Home with Home Care
Discharge Diagnosis/Procedures: Syncope
Condition: Good
Diet: As tolerated
Activity: As tolerated
Activity Restrictions/Additional Instructions:
Presented after passing out at living facility. This was likely believed to be micturition syncope versus vasovagal syncope or orthostatic syncope. Was evaluated by cardiology as there was concern for cardiac enzyme leak that downtrended. Was
monitored on telemetry without acute events. 2D echo completed demonstrating squeezing function of 55 to 60% with mild aortic valve stenosis and mildly dilated ascending aorta measuring 4 cm. Cardiology recommended outpatient follow-up for
potential ischemic evaluation. With saying that hydrochlorothiazide was held as this could worsen orthostatic hypotension, but there was still concern for lower extremity edema therefore after a discussion it was determined to start lasix low dose
daily as agreeable to this and continue to elevate leg along with wearing tubigrips/compression stockings/teds.
Additionally, found to have high white blood cell count unclear as to etiology therefore was evaluated by infectious diseases and recommended oral antibiotics with cefdinir for 5 days on discharge.
CXR
IMPRESSION:
No focal airspace disease.
Slight blunting of the left costophrenic angle, possible trace pleural effusion. No pneumothorax.
CT Head
IMPRESSION:
No acute intracranial abnormality noted.
Mild atrophy with sequelae of mild small vessel ischemic disease.
CT Abd/Pelvis
IMPRESSION: Findings concerning for developing moderate fecal impaction.
Small hypodense hepatic lesion likely a cyst or hemangioma.
Simple right renal cysts. Too small to characterize hypodense right renal lesion likely a benign cyst.
Prior cholecystectomy.
Moderate fecal material throughout the colon.
Mild diverticulosis.
CT Urography
IMPRESSION:
1. Severely enlarged prostate gland with evidence for benign prostatic hyperplasia (BPH).
2. Mild diffuse urinary bladder wall thickening and trabeculation suggesting chronic outlet obstruction. Mild perivesical inflammation could be secondary to superimposed acute cystitis.
3. Moderate chronic bilateral renal disease.
4. Small to moderate number of bilateral renal cysts.
5. Mild acute stercoral colitis in the rectum with suggestion of fecal impaction.
6. Moderate focal peripheral biliary dilatation in the medial segment of the left lobe of the liver and mild atrophy of the left lobe of the liver.
7. Previous cholecystectomy.
8. 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
9. 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
2d Echo
CONCLUSIONS
Normal left ventricular size and function. Normal regional wall motion. Mild
concentric left ventricular hypertrophy. LV ejection fraction is 55-60%.
Mild aortic stenosis. Peak/mean gradients across the aortic valve are 12/6 mmHg
with aortic valve area 1.6 cm2. No aortic regurgitation is seen.
Mild tricuspid regurgitation. Estimated pulmonary artery pressure of 25-30
mmHg.
Mildly dilated ascending aorta, measuring 4.0 cm.
No prior study available for comparison.
Instructions: Syncope (Fainting) (DC), Vasovagal Response (DC)
Referrals:
Anthony Jett MD [Active] - (enlarged prostate)
Guicho Bragg DO [Active] - in one week
Elvis Cullen MD [Non-Admitting Privileges] - 12/11/23 9:00 am (You have a follow up with Dr. Cullen's Nurse Practitioner, Karli Herr, at the main office located at [address] [place] [address], [place] [address]. Please call with questions. )
Lisandro Burns MD [Family Provider] -
Additional Discharge Medication Instructions: stop hctz
start daily lasix
complete 5days of antibiotics
Prescriptions:
New
furosemide 20 mg Tablet
20 mg PO DAILY 30 Days Qty: 30 0RF
cefdinir 300 mg Capsule
300 mg PO Q12 5 Days Qty: 10 0RF
Continued
atorvastatin 20 mg Tablet
20 mg PO HS
therapeutic multivitamin Tablet
1 tab PO DAILY
acetaminophen 500 mg Tablet
500 mg PO Q6HPRN PRN (Reason: mild pain)
ascorbic acid (vitamin C) [Vitamin C] 500 mg Tablet
500 mg PO DAILY
tamsulosin 0.4 mg Capsule
0.4 mg PO DAILY
ibuprofen 200 mg Tablet
200 mg PO Q6HPRN PRN (Reason: mild pain)
aspirin 81 mg Tablet,Chewable
81 mg PO DAILY
gabapentin 100 mg Capsule
100 mg PO DAILY
phenylephrine HCl 10 mg Tablet
10 mg PO DAILY
calcium carbonate-vitamin D3 [Oyster Shell Calcium-Vit D3] 500 mg-5 mcg (200 unit) Tablet
1 tab PO DAILY
krill oil 500 mg Capsule
1,000 mg PO DAILY
Neuriva Plus 0.85 mg-200 mcg-1.2 mcg Tablet,Chewable
1 tab PO DAILY
Discontinued
hydrochlorothiazide 25 mg Tablet
25 mg PO DAILY
Discharge Orders:
Discharge Patient (As Directed); Ordered 12/04/23
Ordered By: Tian Swartz
Discharge Date and Time
Print Language: PANAMANIAN
== END 2023-12-04 13:45 | disposition home health service (06) | DRG 690 ==
LOC: 4 EAST ACU 17:27
PROVIDERS: Internal Medicine; Student in an Organized Health Care Education/Training Program; ADMITTING PHYSICIAN Internal Medicine; ATTENDING PHYSICIAN Hospitalist; CONSULT PHYSICIAN Nuclear Medicine Nuclear Cardiology; EMERGENCY PHYSICIAN Emergency Medicine; FAMILY PHYSICIAN Internal Medicine; OTHER PHYSICIAN Internal Medicine Infectious Disease
DX: N39.0 Urinary tract infection, site not specified (principal); I5A Non-ischemic myocardial injury (non-traumatic); R55 Syncope and collapse; K57.30 Diverticulosis of large intestine without perforation or abscess without bleeding; N28.1 Cyst of kidney, acquired; K56.41 Fecal impaction; Z79.82 Long term (current) use of aspirin
CPT/HCPCS: 70450; 71046; 74176; 74178; 80048; 80053; 81003; 81015; 82533; 82962; 83880; 84145; 84443; 84484; 85025; 85027; 87086; 87502; 87811; 88112; 93005; 93306; 97116; 97530; Q9967

== ENCOUNTER 2024-07-10 07:42 | Emergency (ER) | payer MEDICARE, BC, OTHER, SELFPAY ==
[2024-07-10 07:44] VITALS: BP 164/101
[2024-07-10 07:54] VITALS: BP 187/97
[2024-07-10 08:00] VITALS: BP 170/90
--- NOTE | 2024-07-10 08:22 | ED.GENMED ---
History of Present Illness
General
Chief Complaint: Musculo-Skeletal Complaint
Source: patient and family
Exam Limitations: none
Time Seen by Provider: 07/10/24 08:03
History of Present Illness
History of Present Illness:
88yo right hand dominant male with a history of coronary artery disease, hypertension, hyperlipidemia presenting with his daughter for evaluation of right shoulder and rib pain. Symptoms have been ongoing for about a week. He has been working with
physical therapy on ambulation. He was trying to transition from a rolling walker to a cane last week and believes he overdid it. He reports pain primarily in his right lateral ribcage. He has been taking ibuprofen without much relief. Pain is
worse if he puts pressure on the right arm. He was seen by his PCP last week for these symptoms and had blood work and a CXR which were reportedly normal. His pain has been intermittent but he called his daughter this morning because the pain was
so severe he was unable to get out of bed. He also reports chest tightness and a 'constriction' in his chest but he does not believes this is related as this has been ongoing for several months. Daughter states he has been short of breath with
exertion recently. He is otherwise asymptomatic and denies any pleuritic pain, fevers, cough, vomiting, abdominal pain, paresthesias.
Past History
Past History
ED Past Surgical History: Cholecystectomy, Orthopedic and Other (Cataract)
Phy Exam
General Physical Exam
General Presentation: well appearing and no apparent distress
General Skin: warm and dry
General Habitus: normal and elderly
General Mental: alert
ENT Exam
ENT Exam: normocephalic
Cardiovascular Exam
Cardiovascular Exam: regular rate/rhythm and normal peripheral pulses (2+ radial pulses bilaterally)
Pulmonary Exam
Pulmonary Exam: lungs clear, no respiratory distress, no rales, no crackles, no rhonchi, no wheezing and other (+Tenderness to R lateral rib cage. No skin changes or crepitus. )
Neurological Exam
Neurological Exam: alert
Diana Coma Scale
Eye Opening: Spontaneous
Verbal Response: Oriented
Motor Response: Obeys Commands
GCS Total Score: 15
Musculoskeletal Exam
Musculoskeletal Exam: other (R shoulder: No deformity or swelling noted. No tenderness to palpation of the joint. ROM intact.)
Skin Exam
Skin Exam: normal color and warm/dry
Psychiatric Exam
Psychiatric Exam: normal mood/affect
Course
Orders/Labs/Results
Orders:
Orders
07/10/24 08:21
Electrocardiogram (*1) Urgent
Reason for Study: Shortness of Breath
EKG- Treatment ONCE
Oxycodone/Acetaminophen [Percocet 5/325] 1 tablet PO NOW STA
CR Ribs-right 3 Vw W/pa Chest* Urgent
Comment:
Reason For Exam: R sided rib pain
CR Shoulder - Right Min 2 View Urgent
Comment:
Reason For Exam: atraumatic pain
07/10/24 08:30
Lidocaine [Lidocaine 4% Patch] 1 patch TOPICAL DAILY
Apply Lidocaine patch(s) to:: R ribcage
07/10/24 08:54
Complete Blood Count/With Diff Urgent
Comprehensive Metabolic Panel Urgent
Troponin I Urgent
Abnormal Lab Results
07/10/24
08:54
RBC 4.46 L 10^6/uL
(4.70-6.10)
MCV 97.1 H fL
(80.0-94.0)
MCH 32.3 H pg
(27.0-31.0)
Abs Immat Gran (auto) 0.1 H 10^3/uL
(0-0.05)
Absolute Neuts (auto) 7.5 H 10^3/uL
(1.4-6.5)
Absolute Lymphs (auto) 0.9 L 10^3/uL
(1.2-3.4)
Absolute Monos (auto) 1.1 H 10^3/uL
(0.1-0.6)
Absolute Eos (auto) 0.9 H 10^3/uL
(0-0.7)
Lymphocytes % 8.9 L %
(20.5-51.1)
Monocytes % 10.6 H %
(1.7-9.3)
Eosinophils % 8.2 H %
(0-6)
Chloride 110 H mmol/L
(98-107)
07/10/24 08:54
07/10/24 08:54
Vital Signs
Initial and Last Documented VS:
Initial Vital Signs
Pulse Resp BP Pulse Ox
66 18 164/101 96
07/10/24 07:44 07/10/24 07:44 07/10/24 07:44 07/10/24 07:44
Last Documented Vital Signs
Pulse Resp BP Pulse Ox
66 18 170/90 96
07/10/24 07:44 07/10/24 07:44 07/10/24 08:00 07/10/24 08:30
MDM/Problems Addressed
Differential Diagnosis Includes:
88yoM here with R shoulder/rib pain x 1 week. Believes he overdid it at physical therapy. Pain became severe today. Seen by PCP last week for the same. On review of systems, he does report chest tightness x several months. He is hypertensive with
otherwise stable vitals. He is non-toxic appearing. There is reproducible tenderness to the R lateral ribs on exam. Differential diagnosis includes but is not limited to: muscle strain, fracture, pneumonia, early shingles, less likely ACS
Initial ED plan: Check cardiac labs, EKG, and R shoulder/rib x-rays. Percocet and lidocaine patch for pain.
*EKG
Interpreted by ED Provider?: Yes
EKG Intrepretation Date: 07/10/24
Heart Rate: 59
Rate: normal
Rhythm: sinus
Como: normal axis
Interval: first degree heart block
QRS Pattern: normal QRS
Ischemia: no ischemia
*Critical Care Note
Total Time (30-74mins, 75-104mins- exclusive of procedures): Not Applicable
Update Note
Update Note:
Labs overall unremarkable. EKG shows normal sinus rhythm without ischemic changes and troponin within normal limits. Rib and shoulder x-rays negative for acute osseous abnormalities. Patient feeling significantly improved on reassessment.
Suspect muscular pain as pain is worse with movement and is reproducible on exam. Will trial course of prednisone. Supportive care discussed and patient advised to start using Tylenol and lidocaine patches. Advised close f/u with PCP. Patient
and daughters in agreement with plan and he was discharged in stable condition.
ED Attending Note
-
Portions of this chart may have been created with voice recognition software.� Occasional wrong word or��sound alike� substitutions may have occurred due to the inherent limitations of voice recognition software.
Discharge Plan
Departure
Patient Disposition: Home (Routine Discharge)
Date of Disposition: 07/10/24
Time of Disposition: 10:02
Patient with high blood pressure during this ER visit?: Yes
Discharge Problem:
Rib pain on right side
Instructions: Rib injury in adults
Prescriptions:
New
prednisone 20 mg tablet
40 mg PO DAILY 5 Days Qty: 10 0RF
No Action
atorvastatin 20 mg Tablet
20 mg PO HS
therapeutic multivitamin Tablet
1 tab PO DAILY
acetaminophen 500 mg Tablet
500 mg PO Q6HPRN PRN (Reason: mild pain)
ascorbic acid (vitamin C) [Vitamin C] 500 mg Tablet
500 mg PO DAILY
tamsulosin 0.4 mg Capsule
0.4 mg PO DAILY
ibuprofen 200 mg Tablet
200 mg PO Q6HPRN PRN (Reason: mild pain)
aspirin 81 mg Tablet,Chewable
81 mg PO DAILY
gabapentin 100 mg Capsule
100 mg PO DAILY
phenylephrine HCl 10 mg Tablet
10 mg PO DAILY
calcium carbonate-vitamin D3 [Oyster Shell Calcium-Vit D3] 500 mg-5 mcg (200 unit) Tablet
1 tab PO DAILY
krill oil 500 mg Capsule
1,000 mg PO DAILY
Neuriva Plus 0.85 mg-200 mcg-1.2 mcg Tablet,Chewable
1 tab PO DAILY
furosemide 20 mg Tablet
20 mg PO DAILY 30 Days Qty: 30 0RF
cefdinir 300 mg Capsule
300 mg PO Q12 5 Days Qty: 10 0RF
Referrals:
Lisandro Burns MD [Family Provider] -
Activity Restrictions/Additional Instructions:
Take prednisone as prescribed. Take Tylenol 650mg every 6 hours as needed for pain. Use lidocaine patches daily (12 hours on, 12 hours off).
Please follow-up with your family doctor in 2-3 days. Return to the ER with any new or worsening symptoms.
Interventions
Interventions:
*Risk Screen - Suicide Last Done: 07/10/24 07:44
*General Assessment Last Done: 07/10/24 07:44
*Neglect/Abuse Screening Last Done: 07/10/24 07:44
*ED- Fall Risk Assessment Last Done: 07/10/24 10:21
*ED COVID-19 Vaccine History Last Done: 07/10/24 10:21
*Nursing Disposition Last Done: 07/10/24 10:21
ED-Musculoskeletal Assessment Last Done: 07/10/24 10:19
Discharge Date and Time
Discharge Date/Time: 07/10/24 10:22
Print Language: VIETNAMESE
[2024-07-10 08:33] VITALS: BMI 26.2
[2024-07-10] MEDS: PERCOCET 5/325 1 TABLET PO (08:49)
[2024-07-10] MEDS: LIDOCAINE 4% PATCH 1 PATCH TOPICAL (08:49)
[2024-07-10 09:06] LABS: % Basophils 0.9 % (0-2); % Eosinophils 8.2 % (0-6); % Immature Granulocytes 0.5 % (0-0.5); % Lymphocytes 8.9 % (20.5-51.1); % Monocytes 10.6 % (1.7-9.3); % Neutrophils 70.9 % (42.2-75.2); Absolute Basophils 0.1 10^3/uL (0-0.2); Absolute Eosinophils 0.9 10^3/uL (0-0.7); Absolute Immature Granulocytes 0.1 10^3/uL (0-0.05); Absolute Lymphocytes 0.9 10^3/uL (1.2-3.4); Absolute Monocytes 1.1 10^3/uL (0.1-0.6); Absolute Neutrophils 7.5 10^3/uL (1.4-6.5); Hematocrit 43.3 % (39.0-52.0); Hemoglobin 14.4 g/dL (13.0-18.0); Mean Corp Hgb Conc. 33.3 g/dL (33.0-37.0); Mean Corpuscular Hgb 32.3 pg (27.0-31.0); Mean Corpuscular Volume 97.1 fL (80.0-94.0); Mean Platelet Volume 9.9 fL (7.4-10.4); Nucleated Red Blood Cells % 0 % (-); Platelet Count 178 10^3/uL (130-400); Red Blood Cell Count 4.46 10^6/uL (4.70-6.10); Red Cell Dist. Width 13.4 % (11.5-14.5); White Blood Cell Count 10.5 10^3/uL (4.8-10.8)
[2024-07-10 09:20] LABS: ALT (SGPT) 18 U/L (0-50); AST (SGOT) 21 U/L (17-59); Albumin 3.5 g/dl (3.5-5.0); Alkaline Phosphatase 87 U/L (38-126); Blood Urea Nitrogen 17 mg/dl (9-20); Calcium 8.5 mg/dl (8.4-10.2); Carbon Dioxide 26 mmol/L (22-30); Chloride 110 mmol/L (98-107); Estimated Creatinine Clearance 68 ml/min; Glucose 94 mg/dl (70-99); Potassium 4.3 mmol/L (3.5-5.1); Sodium 139 mmol/L (135-145); Total Protein 6.7 g/dl (6.3-8.2); eGFR > 60.00
[2024-07-10 09:30] LABS: Troponin I < 0.012 ng/ml
== END 2024-07-10 10:22 | disposition home or self-care (01) ==
LOC: EMR 07:42
PROVIDERS: Physician Assistant; EMERGENCY PHYSICIAN Emergency Medicine; FAMILY PHYSICIAN Internal Medicine
DX: R07.81 Pleurodynia (principal); I10 Essential (primary) hypertension; I25.10 Atherosclerotic heart disease of native coronary artery without angina pectoris; E78.5 Hyperlipidemia, unspecified
CPT/HCPCS: 99285; 71101; 73030; 80053; 84484; 85025; 93005